=== PATIENT | male | born 1980 | race African-American/Black ===

== ENCOUNTER 2017-09-23 09:22 | Emergency (ER) | payer SELFPAY ==
[2017-09-23] MEDS ORDERED: NORMAL SALINE 1000 ML 1,000 ML IV ONE ×2 (09:50→11:01)
[2017-09-23] MEDS ORDERED: ONDANSETRON HCL INJ/PF 4 MG/2 ML SDV IV ONE ×2 (09:50→11:01)
--- NOTE | 2017-09-23 09:52 | ER Document Report ---
ED Medical Screen (RME) - General Chief Complaint: Abdominal Pain Stated Complaint: STOMACH PAIN, BLOOD IN STOOL Time Seen by Provider: 09/23/17 09:50 Notes: Patient is his last year he was diagnosed with diverticulitis and spent approximately 7 days in the hospital. Patient states she has had no abdominal surgeries. He states the last 3 days he has had suprapubic abdominal pain that feels similar to the diverticulitis. Today he had one bright red stool. TRAVEL OUTSIDE OF THE [place] IN LAST 30 DAYS: No - Related Data Allergies/Adverse Reactions: prochlorperazine edisylate [From Compazine] Allergy (Severe, Verified 09/23/17 09:25) prochlorperazine maleate [From Compazine] Allergy (Severe, Verified 09/23/17 09: 25) Home Medications: Current Home Medications No Home Medications 09/23/17 [History] Past Medical History - Social History Chew tobacco use (# tins/day): - 15 Frequency of alcohol use: None Drug Abuse: None Family history: DM - grandmother, Other - father and sister had kidney failure - Past Medical History Cardiac Medical History: Reports: Hx Heart Attack, Hx Hypercholesterolemia, Hx Hypertension Neurological Medical History: Reports: Hx Migraine Renal/ Medical History: Denies: Hx Peritoneal Dialysis GI Medical History: Reports: Hx Diverticulitis, Hx Gastroesophageal Reflux Disease Musculoskeltal Medical History: Reports Hx Arthritis, Reports Hx Musculoskeletal Deformity, Reports Hx Musculoskeletal Trauma Psychiatric Medical History: Denies: Hx Depression Surgical Hx: Negative - Immunizations Immunizations up to date: Yes Hx Diphtheria, Pertussis, Tetanus Vaccination: Yes - 2012 Physical Exam - Vital signs Vitals: Temp Pulse Resp BP Pulse Ox 98.9 F 89 14 161/107 H 97 09/23/17 09:25 09/23/17 09:25 09/23/17 09:25 09/23/17 09:25 09/23/17 09:25 Course - Vital Signs Vital signs: Temp Pulse Resp BP Pulse Ox 98.9 F 89 14 161/107 H 97 09/23/17 09:25 09/23/17 09:25 09/23/17 09:25 09/23/17 09:25 09/23/17 09:25
--- NOTE | 2017-09-23 10:19 | ER Document Report ---
ED GI/ - General Chief Complaint: Abdominal Pain Stated Complaint: STOMACH PAIN, BLOOD IN STOOL Time Seen by Provider: 09/23/17 09:50 Mode of Arrival: Ambulatory Information source: Patient Notes: 37 yo htn, diverticulitis with perforation, hyperlipedemia, MA from Cocaine at long 10 yr ago, smoker, non drugs, non etoh. c/o nausea & vomiting whatever he eats with suprapubic intermittent sharp abdominal pain for 2 days, none now. Red blood with BM this am, soft. No fever. Pt refuses rectal exam for stool hemmocult but will let me look at anus. Nurse in room for exam. TRAVEL OUTSIDE OF THE [place] IN LAST 30 DAYS: No - Related Data Allergies/Adverse Reactions: prochlorperazine edisylate [From Compazine] Allergy (Severe, Verified 09/23/17 09:25) prochlorperazine maleate [From Compazine] Allergy (Severe, Verified 09/23/17 09: 25) Past Medical History - General Information source: Patient - Social History Smoking Status: Current Every Day Smoker Chew tobacco use (# tins/day): - 15 Frequency of alcohol use: None Drug Abuse: None, Other - positive for cocaine but pt denies. Lives with: Family Family History: DM, Hyperlipidemia, Hypertension, Other - kidney disease Patient has suicidal ideation: No Patient has homicidal ideation: No - Past Medical History Cardiac Medical History: Reports: Hx Heart Attack, Hx Hypercholesterolemia, Hx Hypertension Neurological Medical History: Reports: Hx Migraine Renal/ Medical History: Denies: Hx Peritoneal Dialysis GI Medical History: Reports: Hx Diverticulitis, Hx Gastroesophageal Reflux Disease Musculoskeltal Medical History: Reports Hx Arthritis, Reports Hx Musculoskeletal Deformity, Reports Hx Musculoskeletal Trauma Psychiatric Medical History: Denies: Hx Depression Surgical Hx: Negative - Immunizations Immunizations up to date: Yes Hx Diphtheria, Pertussis, Tetanus Vaccination: Yes - 2012 Review of Systems - Review of Systems Constitutional: No symptoms reported EENT: No symptoms reported Cardiovascular: No symptoms reported Respiratory: No symptoms reported Gastrointestinal: See HPI Genitourinary: No symptoms reported Male Genitourinary: No symptoms reported Musculoskeletal: No symptoms reported Skin: No symptoms reported Hematologic/Lymphatic: No symptoms reported Neurological/Psychological: No symptoms reported Physical Exam - Vital signs Vitals: Temp Pulse Resp BP Pulse Ox 98.9 F 89 14 161/107 H 97 09/23/17 09:25 09/23/17 09:25 09/23/17 09:25 09/23/17 09:25 09/23/17 09:25 Interpretation: Normal - General General appearance: Appears well, Alert In distress: None - HEENT Head: Normocephalic, Atraumatic Eyes: Normal Conjunctiva: Normal Pupils: PERRL Mucous membranes: Dry Pharynx: Normal Neck: Supple - Respiratory Respiratory status: No respiratory distress Chest status: Nontender Breath sounds: Normal Chest palpation: Normal - Cardiovascular Rhythm: Regular Heart sounds: Normal auscultation Murmur: No - Abdominal Inspection: Normal Distension: No distension Bowel sounds: Normal Tenderness: Tender - lowe midline abdomen. No: Guarding, Rebound Organomegaly: No organomegaly - Rectal Tenderness: No Stool: Other - pt refuses finger insertion for hemmocult Hemorrhoids: None - Back Back: Normal, Nontender. No: Tender - Extremities General upper extremity: Normal inspection, Nontender, Normal color, Normal ROM , Normal temperature General lower extremity: Normal inspection, Nontender, Normal color, Normal ROM , Normal temperature, Normal weight bearing. No: Patsy's sign - Neurological Neuro grossly intact: Yes Cognition: Normal Orientation: AAOx4 [place] Coma Scale Eye Opening: Spontaneous [place] Coma Scale Verbal: Oriented [place] Coma Scale Motor: Obeys Commands [place] Coma Scale Total: 15 Speech: Normal Motor strength normal: LUE, RUE, LLE, RLE Sensory: Normal - Psychological Associated symptoms: Normal affect, Normal mood - Skin Skin Temperature: Warm Skin Moisture: Dry Skin Color: Normal Course - Re-evaluation Re-evalutation: 09/23/17 11:04 pt denies cocaine. 09/23/17 12:59 CT scan show diverticuli with mild stranding which can be early diverticulitis, will tx with antibiotics. pt feels better after meds and IV fluid. The nurse came to me and said that patient states that Ultram makes him itch he wants something different so I will prescribe him Motrin. His CT scan showed early stranding around the diverticula in the colon. He states he will be back if the pain gets worse. When the nurse went back to the room to give him the Motrin prescription he had left the room. - Vital Signs Vital signs: Temp Pulse Resp BP Pulse Ox 98.5 F 82 18 151/92 H 96 09/23/17 12:46 09/23/17 12:46 09/23/17 12:46 09/23/17 12:46 09/23/17 12:46 - Laboratory Result Diagrams: 09/23/17 09:59 09/23/17 09:59 Laboratory results interpreted by me: 09/23/17 09/23/17 09/23/17 09:55 09:59 09:59 RBC 6.08 H MCV 70 L MCH 22.6 L RDW 15.3 H Monocytes % 13.5 H Basophils % 2.5 H Sodium 146.7 H Carbon Dioxide 31 H Creatinine 1.38 H Est GFR (Non-Af Amer) 58 L Ur Leukocyte Esterase TRACE H Urine Ascorbic Acid 40 H Discharge - Discharge Clinical Impression: Hypertension Qualifiers: Hypertension type: essential hypertension Qualified Code(s): I10 - Essential ( primary) hypertension Diverticulitis Qualifiers: Diverticulitis site: large intestine Diverticulitis bleeding: without bleeding Diverticulitis complication: without perforation or abscess Qualified Code(s): K57.32 - Diverticulitis of large intestine without perforation or abscess without bleeding Condition: Good Disposition: HOME, SELF-CARE Instructions: Abdominal Pain ([facility]), Ciprofloxacin ([facility]), Diverticulitis ([facility]), Metronidazole ([facility]), Ultram ([facility]) Additional Instructions: to er if increased pain take the antibiotics Please complete the patient satisfaction survey if you get one, and return it.. If you do not receive a survey, then you can go to the [facility] website, [email or web address] and place your comments about your very good care. Thank you very much. It was a pleasure being your medical provider today. Prescriptions: Ibuprofen [Motrin 800 mg Tablet] 800 mg PO Q8HP PRN #30 tablet PRN Reason: Ciprofloxacin HCl [Cipro 500 mg Tablet] 500 mg PO TID #30 tablet Metronidazole 500 mg PO Q6H #40 tablet Tramadol HCl [Ultram 50 mg Tablet] 50 mg PO ASDIR PRN #20 tablet PRN Reason: Forms: Elevated Blood Pressure, Return to Work
[2017-09-23 10:23] LABS: ABSOLUTE BASOPHILS # (AUTO) 0.2 10^3/uL (0.0-0.2); ABSOLUTE EOSINOPHILS # (AUTO) 0.2 10^3/uL (0.0-0.6); ABSOLUTE LYMPHOCYTES (AUTO) 1.4 10^3/uL (0.5-4.7); ABSOLUTE MONOCYTES (AUTO) 0.8 10^3/uL (0.1-1.4); ABSOLUTE NEUT (AUTO) 3.5 10^3/uL (1.7-8.2); BASOPHILS % (AUTO) 2.5 % (0-2); EOSINOPHILS % (AUTO) 3.3 % (0-6); HEMATOCRIT 42.6 % (37.9-51.0); HEMOGLOBIN 13.8 g/dL (13.5-17.0); HGB HCT DIFFERENCE -1.2; LYMPHOCYTES % (AUTO) 22.8 % (13-45); MEAN CORPUSCULAR HEMOGLOBIN 22.6 pg (27.0-33.4); MEAN CORPUSCULAR HGB CONC 32.3 g/dL (32.0-36.0); MEAN CORPUSCULAR VOLUME 70 fl (80-97); MONOCYTES % (AUTO) 13.5 % (3-13); RED BLOOD COUNT 6.08 10^6/uL (4.35-5.55); RED CELL DISTRIBUTION WIDTH 15.3 % (11.5-14.0); SEGMENTED NEUTROPHILS % (AUTO) 57.9 % (42-78)
[2017-09-23 10:27] LABS: APPEARANCE,URINE SLIGHTLY-CLOUDY; BILIRUBIN,URINE NEGATIVE (NEGATIVE); GLUCOSE, URINE NEGATIVE (NEGATIVE); KETONES,URINE NEGATIVE (NEGATIVE); LEUKOCYTE ESTERASE,URINE TRACE (NEGATIVE); NITRITE,URINE NEGATIVE (NEGATIVE); PROTEIN,URINE NEGATIVE (NEGATIVE); URINE SPECIFIC GRAVITY 1.013; UROBILINOGEN,URINE NEGATIVE mg/dL (<2.0)
[2017-09-23 10:40] LABS: ALANINE AMINOTRANSFERASE 25 U/L (21-72); ALBUMIN 4.5 g/dL (3.5-5.0); ALKALINE PHOSPHATASE 65 U/L (38-126); ANION GAP 13 (5-19); ASPARTATE AMINO TRANSFERASE 19 U/L (17-59); BILIRUBIN,DIRECT 0.3 mg/dL (0.0-0.4); BILIRUBIN,TOTAL 0.5 mg/dL (0.2-1.3); BLOOD UREA NITROGEN 9 mg/dL (7-20); CALCIUM 9.8 mg/dL (8.4-10.2); CARBON DIOXIDE 31 mmol/L (22-30); CHLORIDE 103 mmol/L (98-107); CREATININE RESULT 1.38 mg/dL (0.52-1.25); GLUCOSE 85 mg/dL (75-110); LIPASE 127.3 U/L (23-300); SODIUM 146.7 mmol/L (137-145); TOTAL PROTEIN 7.7 g/dL (6.3-8.2)
[2017-09-23 10:41] LABS: URINE BARBITURATES SCREEN NEGATIVE; URINE METHADONE SCREEN NEGATIVE; URINE OPIATES LOW NEGATIVE; URINE PHENCYCLIDINE SCREEN NEGATIVE
[2017-09-23] MEDS ORDERED: MORPHINE SULFATE 10 MG/ML INJ IV ONE (11:01)
--- NOTE | 2017-09-23 12:16 | RADIOLOGY REPORT (SQ) ---
EXAM DESCRIPTION: CT ABD/PELVIS WITH IV ONLY COMPLETED DATE/TIME: 09/23/2017 11:59 am REASON FOR STUDY: abd pain hx divertic with perf COMPARISON: 11/19/2015 TECHNIQUE: CT scan of the abdomen and pelvis performed using helical scanning technique with dynamic intravenous contrast injection. No oral contrast. Images reviewed with lung, soft tissue, and bone windows. Reconstructed coronal and sagittal MPR images reviewed. Delayed images for evaluation of the urinary system also acquired. All images stored on PACS. All CT scanners at this facility use dose modulation, iterative reconstruction, and/or weight based d osing when appropriate to reduce radiation dose to as low as reasonably achievable (ALARA). [facility]: Dose Right [facility]: CareDose [facility]: Dose Right [facility]: Teradose 4D [facility]: [employer] CONTRAST TYPE AND DOSE: contrast/concentration: Isovue 370.00 mg/ml; Total Contrast Delivered: 89.0 ml; Total Saline Delivered: 70.1 ml RENAL FUNCTION: Creatinine 1.4 BUN 9 RADIATION DOSE: Up-to-date CT equipment and radiation dose reduction techniques were employed. CTDIv ol: 7.5 - 10.6 mGy. DLP: 940 mGy-cm.. LIMITATIONS: None. FINDINGS: LOWER CHEST: No significant findings. No nodules or infiltrates. LIVER: There is several small low-density lesions that are well-circumscribed, having the appearance of cysts. Some are too small to characterize. SPLEEN: Normal size. No focal lesions. PANCREAS: No masses. No significant calcifications. No adjacent inflammation or peripancreatic fluid collections. Pancreatic duct not dilated. GALLBLADDER: No identified stones by CT criteria. No inflammatory changes to suggest cholecystitis. ADRENAL GLANDS: There is stable thickening of both adrenal glands. RIGHT KIDNEY AND URETER: No solid masses. No significant calcifications. No hydronephrosis or hyd roureter. LEFT KIDNEY AND URETER: No solid masses. No significant calcifications. No hydronephrosis or hydr oureter. AORTA AND VESSELS: No aneurysm. No dissection. Renal arteries, SMA, celiac without stenosis. RETROPERITONEUM: No retroperitoneal adenopathy, hemorrhage or masses. BOWEL AND PERITONEAL CAVITY: Scattered descending colon and sigmoid diverticula are present. Cannot exclude mild stranding in the fat around the sigmoid there is a top of the bladder. APPENDIX: Normal. PELVIS: No mass. No free fluid. Normal bladder. ABDOMINAL WALL: No masses. No hernias. BONES: No significant or acute findings. OTHER: No other significant finding. IMPRESSION: Descending colon and sigmoid diverticulosis. Cannot exclude mild inflammatory changes a ssociated with the sigmoid in the pelvis. Other findings as described. TECHNICAL DOCUMENTATION: JOB ID: [id number] Quality ID # [id number]: Final reports with documentation of one or more dose reduction techniques (e.g., Au tomated exposure control, adjustment of the mA and/or kV according to patient size, use of iterative reconstruction technique) 2010 [employer]- All Rights Reserved
[2017-09-23] MEDS ORDERED: METRONIDAZOLE 500 MG TABLET PO ONE (12:28)
[2017-09-23] MEDS ORDERED: CIPROFLOXACIN HCL 750 MG TABLET PO ONE (12:28)
[2017-09-23 12:50] VITALS: BP 151/92
== END 2017-09-23 13:00 | disposition home or self-care (01) ==
LOC: ER 09:22
DX: K57.32 Diverticulitis of large intestine without perforation or abscess without bleeding (principal); I10 Essential (primary) hypertension; I25.2 Old myocardial infarction; F17.200 Nicotine dependence, unspecified, uncomplicated; K92.1 Melena; Z88.1 Allergy status to other antibiotic agents
CPT/HCPCS: 96376; 99284; 96361; 96374; 96375; 36415; 83690; 85025; 80053; 81001; 80307; 74177; J2270; J2405; J3490; J7030

== ENCOUNTER → 2020-05-22 | Outpatient (CLI) | payer OTHER ==
--- NOTE | 2020-05-22 15:45 | RADIOLOGY REPORT (SQ) ---
EXAM DESCRIPTION: CT ABD/PELVIS WITH IV ORAL IMAGES COMPLETED DATE/TIME: 05/22/2020 3:25 pm REASON FOR STUDY: DIVERTICULITIS W/O HEM (K57.32), LLQ PAIN (R10.32), VESICAL FISTULA, NEC (N K57.32 DVTRCLI OF LG INT W/O PERFORATION OR ABSCESS W/O BLEE N32.2 VESICAL FISTULA, NOT ELSEWHERE CLASSIF IED COMPARISON: 10/28/2016 TECHNIQUE: CT scan of the abdomen and pelvis performed using helical scanning technique with dynamic intravenous contrast injection. No oral contrast. Images reviewed with lung, soft tissue, and bone windows. Reconstructed coronal and sagittal MPR images reviewed. Delayed images for evaluation of the urinary system also acquired. All images stored on PACS. All CT scanners at this facility use dose modulation, iterative reconstruction, and/or weight based d osing when appropriate to reduce radiation dose to as low as reasonably achievable (ALARA). [facility]: Dose Right [facility]: CareDose [facility]: Dose Right [facility]: Teradose 4D [facility]: [employer] CONTRAST TYPE AND DOSE: contrast/concentration: Isovue 350.00 mmol/ml; Total Contrast Delivered: 89. 0 ml; Total Saline Delivered: 25.5 ml RENAL FUNCTION: Creatinine 1.2 RADIATION DOSE: CT Rad equipment meets quality standard of care and radiation dose reduction techniq ues were employed. CTDIvol: 6.3 - 8.9 mGy. DLP: 792 mGy-cm.. LIMITATIONS: None. FINDINGS: LOWER CHEST: No significant findings. No nodules or infiltrates. LIVER: Normal size. No masses. No dilated ducts. SPLEEN: Normal size. No focal lesions. PANCREAS: No masses. No significant calcifications. No adjacent inflammation or peripancreatic fluid collections. Pancreatic duct not dilated. GALLBLADDER: No identified stones by CT criteria. No inflammatory changes to suggest cholecystitis. ADRENAL GLANDS: No significant masses or asymmetry. RIGHT KIDNEY AND URETER: No solid masses. No significant calcifications. No hydronephrosis or hyd roureter. LEFT KIDNEY AND URETER: No solid masses. No significant calcifications. No hydronephrosis or hydr oureter. AORTA AND VESSELS: No aneurysm. No dissection. Renal arteries, SMA, celiac without stenosis. RETROPERITONEUM: No retroperitoneal adenopathy, hemorrhage or masses. BOWEL AND PERITONEAL CAVITY: Sigmoid diverticula are present. There is thickening of the sigmoid and there is some stranding. The sigmoid is in contact with the bladder. A fistula cannot be excluded. APPENDIX: Not identified. PELVIS: A colovesical fistula cannot be excluded. See images 62 through 66 series 3. See image 32 s eries 601. ABDOMINAL WALL: No masses. No hernias. BONES: No significant or acute findings. OTHER: No other significant finding. IMPRESSION: Sigmoid diverticulosis. There is thickening of a segment of the sigmoid immediately adj acent to the bladder. There is some stranding around the sigmoid. Cannot exclude diverticulitis. C annot exclude neoplasm. Cannot exclude colovesical fistula. TECHNICAL DOCUMENTATION: JOB ID: [id number] Quality ID # [id number]: Final reports with documentation of one or more dose reduction techniques (e.g., Au tomated exposure control, adjustment of the mA and/or kV according to patient size, use of iterative reconstruction technique) 2010 [employer]- All Rights Reserved Reading location - IP/workstation name: [email or web address]
== END ==
LOC: RAD 14:08
PROVIDERS: ATTEND Internal Medicine Gastroenterology
DX: K57.32 Diverticulitis of large intestine without perforation or abscess without bleeding (principal); N32.2 Vesical fistula, not elsewhere classified; R10.32 Left lower quadrant pain
CPT/HCPCS: 74177; 82565